=== PATIENT | male | born 2000 | race Caucasian/White ===

== ENCOUNTER 2023-10-20 18:27 | Emergency (ER) | payer MEDICAID, SELFPAY ==
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
[2023-10-20 18:31] VITALS: BP 145/101; PULSE 81; RESP 20; TEMP 36.8; O2SAT 96
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
[2023-10-20] MEDS: KETOROLAC (*BKC) 60 MG/2 ML VIAL IM (19:33)
== END 2023-10-20 20:05 | disposition home or self-care (01) ==
PROVIDERS: Emergency Provider Emergency Medicine; PCP Family Medicine
DX: S90.112A Contusion of left great toe without damage to nail, initial encounter (principal); V19.9XXA Pedal cyclist (driver) (passenger) injured in unspecified traffic accident, initial encounter
CPT/HCPCS: 73562; 73630; 96372; 99284; J1885